=== PATIENT | male | born 2000 | race Two or more races ===

== ENCOUNTER 2025-01-15 12:38 | Emergency (ER) | payer MEDICAID, OTHER ==
[~2025-01-15] VITALS: Ht 170.2 cm; Wt 54.5 kg
[2025-01-15] MEDS: ACETAMINOPHEN 500 MG TAB or CAP PO ONE (13:48)
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
[2025-01-15] MEDS ORDERED: IBUP-1454 PO (14:05)
[2025-01-15] MEDS ORDERED: METF-370 PO (14:05)
[2025-01-15 14:12] VITALS: BP 100/64; PULSE 91; RESP 18; TEMP 98.1; O2SAT 98
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
== END 2025-01-15 14:13 | disposition home or self-care (01) ==
LOC: ER 12:38 → EDBD 12:38 → ER 14:13
DX: S33.5XXA Sprain of ligaments of lumbar spine, initial encounter (principal); S16.1XXA Strain of muscle, fascia and tendon at neck level, initial encounter; V59.40XA Driver of pick-up truck or van injured in collision with unspecified motor vehicles in traffic accident, initial encounter; Y93.89 Activity, other specified; Y92.488 Other paved roadways as the place of occurrence of the external cause; Y99.8 Other external cause status
CPT/HCPCS: 72040; 72100